=== PATIENT | male | born 1995 | race Caucasian/White ===

== ENCOUNTER 2020-12-30 15:47 | Emergency (ER) | payer MEDICARE, OTHER, SELFPAY ==
[2020-12-30 17:15] VITALS: BP 139/83; PULSE 89; RESP 19; TEMP 37.1; O2SAT 98; BMI 38.9
--- NOTE | 2020-12-30 17:33 | HMH.EDUTC ---
[facility] Disposition Clinical Impression: Abscess of left axilla Cellulitis Qualifiers: Site of cellulitis: trunk Site of cellulitis of trunk: chest wall Qualified Code(s): L03.313 - Cellulitis of chest wall Disposition: Home, Self-Care Condition on Discharge: Good Instructions: Cellulitis, Boil Additional Instructions: Keep the affected area clean and dry. Follow up with your regular doctor. Take the antibiotics as directed and apply the topical antibiotics to the affected area. Apply warm wet compresses to the affected area three or four times per day. GO TO THE ER FOR ANY WORSENING SYMPTOMS Prescriptions: Sulfamethoxazole/Trimethoprim [Bactrim DS tablet] 1 each PO BID 10 Days #20 tab Transmission Status: Pending to [facility] Mupirocin [Bactroban 2% Ointment 22gm tube] 1 applicatio TP TID 7 Days #1 gm Transmission Status: Pending to [facility] cephALEXin [cephALEXin 500mg capsule] 500 mg PO Q6H 10 Days #40 cap Transmission Status: Pending to [facility] Referrals: Joshua Stone MD [Primary Care Provider] - Time of Disposition: 17:38 Medical Decision Making - Medical Records Medical records reviewed: No: I reviewed the patient's medical records. - Bryan Inquiry Pt receiving controlled substance: No Vital Signs: 12/30/20 17:15 Temperature 98.8 F Temperature Source Oral Pulse Rate [Left] 89 Respiratory Rate 19 Blood Pressure [Right Arm] 139/83 Blood Pressure Mean [Right Arm] 101 02 Sat by Pulse Oximetry 98 Orders (Tests/Meds): ORDERS Category Date Time Status Wound Culture and Gram Stain Stat Micro 12/30/20 17:18 Ordered [facility] HPI - General Stated complaint: boil under left arm Time Seen by Provider: 12/30/20 17:20 Mode of Arrival: Ambulatory Source of Information: Patient Limitations: No Limitations Description of Symptoms (Recalled from Triage Doc. by RN): pt states he has a boil under his left arm on his axilla. pt states it just appeared this morning. the area has a think layer of skin covering it and is peeling. small amount of bruising around the area, with redness, swelling and heat. HEENT Symptoms (Recalled from RN notes): No Resp Symptoms (Recalled from RN notes): No Skin Symptoms (Recalled from RN notes): Yes (abcess under L axilla) MS Symptoms (Recalled from RN notes): No Functional Status (Recalled from RN notes): na - History of Present Illness Provider Complaint: He states that for the past 2 days, he has had a sore red area under his left arm that has drainaged some tannish drainage. He denies any fever. He denies any history of getting similar lesions. He is not a diabetic that he knows of. - Related Data Previous Rx's Medication Instructions Recorded Amoxicillin [Amoxicillin 500mg 500 mg PO TID #30 cap 03/08/18 Cap] Mupirocin [Bactroban 2% Ointment 1 applicatio TP TID 7 Days #1 gm 12/30/20 22gm tube] Sulfamethoxazole/Trimethoprim 1 each PO BID 10 Days #20 tab 12/30/20 [Bactrim DS tablet] cephALEXin [cephALEXin 500mg 500 mg PO Q6H 10 Days #40 cap 12/30/20 capsule] Allergies Allergy/AdvReac Type Severity Reaction Status Date / Time NO KNOWN ALLERGIES - NKA Allergy Mild Uncoded 02/11/17 14:04 - Worker's Comp Is this a Worker's Comp case?: No [facility] History - Hepatitis A Screen Drug use history?: No High risk sexual behaviors?: No History of sexually transmitted infection?: No Currently employed?: No Childcare worker?: No Do you have indoor plumbing?: Yes Do you have electricity?: Yes Attestation statement:: This patient has been screened for Hepatitis A risk factors. I have reviewed the patient's past medical history: Yes - Social History Smoking Status: Unknown if ever smoked Tobacco Type: smokeless tobacco Alcohol Intake: never ROS Obtained: Yes All systems reviewed & no additional complaints - Constitutional Constitutional: Denies chills, Denies fever(s)
[2020-12-30 17:46] VITALS: BP 139/83; PULSE 89; RESP 18; TEMP 37.1
== END 2020-12-30 17:52 | disposition home or self-care (01) ==
PROVIDERS: Emergency Provider Nurse Practitioner Family; PCP Internal Medicine Adolescent Medicine
DX: L02.412 Cutaneous abscess of left axilla (principal)
CPT/HCPCS: 10060; G0463; 87070; 87077; 87186; 87205; 99202

== ENCOUNTER 2021-10-04 10:45 | Emergency (ER) | payer MEDICARE, OTHER, SELFPAY ==
[2021-10-04 10:45] VITALS: RESP 18; TEMP 38.8; O2SAT 98; BMI 38.4
--- NOTE | 2021-10-04 11:01 | XR_ITS ---
FINAL REPORT CLINICAL HISTORY: cough FINDINGS: 2 views of the chest were obtained . The heart is normal in size. The mediastinum is within normal limits. There are bilateral pulmonary opacities consistent with bilateral pneumonia. There is no pneumothorax. Osseous structures are unremarkable. IMPRESSION: Bilateral pneumonia. Reviewed, Interpreted and Dictated by Arron Yoo III, MD Transcribed by Natalia Morton Authenticated and . [facility]
--- NOTE | 2021-10-04 11:03 | PC.NURSE ---
pt medicated per MAR. covid swab sent to the lab
[2021-10-04 11:05] LABS: Coronavirus 19, PCR Not Detected (NotDetected); Influenza A, PCR Not Detected (NotDetected); Influenza B, PCR Not Detected (NotDetected)
--- NOTE | 2021-10-04 11:12 | PC.NURSE ---
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
--- NOTE | 2021-10-04 11:38 | HMH.EDGENADL ---
ED Disposition Clinical Impression: Community acquired pneumonia Qualifiers: Laterality: unspecified laterality Qualified Code(s): J18.9 - Pneumonia, unspecified organism Disposition: Home, Self-Care Condition on Discharge: Good Instructions: DI for Pneumonia -- Adult Additional Instructions: Additional instructions for PNEUMONIA: Take antibiotics as prescribed. See your physician as soon as possible for further evaluation. Return immediately if you have an uncontrollable fever greater than 102 degrees, difficulty breathing or shortness of breath, persistent vomiting, or severe chest pain. You are being provided with a list of physicians available for follow-up of your condition. Please call a physician on this list to arrange a follow-up appointment as soon as possible. Prescriptions: Benzonatate [Benzonatate 100mg cap] 100 mg PO TIDP PRN #15 cap PRN Reason: Cough Transmission Status: Pending to [facility] Cefdinir [Omnicef 300mg Capsule] 300 mg PO BID #20 cap Transmission Status: Pending to [email or web address] Azithromycin [Zithromax 250mg tab] 250 mg PO DAILY #4 tab Transmission Status: Pending to [facility] Referrals: Provider,Referral, [Primary Care Provider] - - Critical Care Critical Care Time: No Attestation: On 10/04/21, the high probability of a clinically significant, sudden or life threatening deterioration of the following system(s) required my full and direct attention, intervention and personal management. The time I documented below is in addition to time spent performing reported procedures but includes the following listed in this critical care notation. Medical Decision Making - Bryan Inquiry Pt receiving controlled substance: No Vital Signs: 10/04/21 10:45 10/04/21 11:45 10/04/21 12:00 Temperature 101.9 F H Temperature Source Oral Pulse Rate 101 H 83 Respiratory Rate 18 Blood Pressure 134/79 124/70 Blood Pressure Mean 88 93 02 Sat by Pulse Oximetry 98 98 98 Oxygen Delivery Method Room Air 10/04/21 12:38 Temperature 100.1 F H Temperature Source Oral Pulse Rate Respiratory Rate Blood Pressure Blood Pressure Mean 02 Sat by Pulse Oximetry Oxygen Delivery Method - Lab Data Lab Results 10/04/21 10:59: SARS-CoV-2 (PCR) Not detected, Influenza A Untype (PCR) Not detected, Influenza Type B (PCR) Not detected 10/04/21 11:51: WBC 19.2 H, RBC 4.78, Hgb 14.9, Hct 46.7, MCV 97.7 H, MCH 31.3 H, MCHC 32.0, RDW 13.8, Plt Count 332, MPV 8.3, Neut % (Auto) 79.7, Lymph % (Auto) 10.4, [place] % (Auto) 8.0, Eos % (Auto) 1.5, Baso % (Auto) 0.5, Neut # (Auto) 15.3 H, Lymph # (Auto) 2.0, [place] # (Auto) 1.5 H, Eos # (Auto) 0.3, Baso # (Auto) 0.1, Total Counted 100, Neutrophils % (Manual) 79 H, Lymphocytes % (Manual) 12, Monocytes % (Manual) 8, Eosinophils % (Manual) 1, Platelet Estimate Normal, RBC Morphology Normal 10/04/21 11:51: Sodium 138, Potassium 4.0, Chloride 103, Carbon Dioxide 27, Anion Gap 12.0, BUN 5 L, Creatinine 0.80, Estimated Creat Clear 238, Estimated GFR 119, Est GFR ( Amer) 144, Glucose 121 H, Calcium 9.5, Total Bilirubin 0.8, AST 32, ALT 26, Alkaline Phosphatase 117, Total Protein 8.0, Albumin 4.4, Globulin 3.6 H, Albumin/Globulin Ratio 1.2 10/04/21 11:51: Lactate 1.0 Result diagrams: 10/04/21 11:51 10/04/21 11:51 Orders (Tests/Meds): ED MEDICATIONS Generic Name Dose Route Start Last Admin Trade Name Freq PRN Reason Stop Dose Admin Ceftriaxone Sodium 1 gm/ 50 mls @ 100 mls/hr 10/04/21 12:00 10/04/21 11:52 Sodium Chloride IV 10/18/21 11:59 100 mls/hr Q24H GINA Administration Azithromycin 500 mg/ Sodium 250 mls @ 250 mls/hr 10/04/21 12:00 10/04/21 12:00 Chloride IV 10/18/21 11:59 250 mls/hr Q24H GINA Administration Discontinued Medications Generic Name Dose Route Start Last Admin Trade Name Freq PRN Reason Stop Dose Admin Acetaminophen 1,000 mg 10/04/21 11:01 10/04/21 11:03
[2021-10-04 11:45] VITALS: BP 134/79; PULSE 101; O2SAT 98
[2021-10-04 12:00] VITALS: BP 124/70; PULSE 83; O2SAT 98
--- NOTE | 2021-10-04 12:01 | PC.NURSE ---
ATB INFUSING , NO NEEDS AT THIS TIME
[2021-10-04 12:11] LABS: Basophils # 0.1 K/mm3 (0-0.2); Basophils % 0.5 % (0.1-2.0); Eosinophils # 0.3 K/mm3 (0.0-0.4); Eosinophils % 1.5 % (0.1-12.0); Hematocrit 46.7 % (42.0-52.0); Hemoglobin 14.9 g/dL (14.1-18.0); Lymphocytes % 10.4 % (10-50); Mean Corpuscular Hemoglobin 31.3 pg (27.0-31.2); Mean Corpuscular Volume 97.7 fl (80-94); Mean Platelet Volume 8.3 fl (7.4-10.4); Monocytes # 1.5 K/mm3 (0.1-1.0); Neutrophils # 15.3 K/mm3 (1.8-7.8); Neutrophils % 79.7 % (37.0-80.0); Platelet Count 332 K/mm3 (142-424); Red Blood Count 4.78 M/mm3 (4.60-6.20); Red Cell Distribution Width 13.8 % (11.5-17.5); White Blood Count 19.2 K/mm3 (4.8-10.8)
[2021-10-04 12:13] LABS: MANUAL DIFFERENTIAL MANUAL DIFFERENTIAL (MANUAL DIFF)
[2021-10-04 12:18] LABS: Chloride 103 mmol/L (98-107); Sodium 138 mmol/L (136-145)
[2021-10-04 12:21] LABS: Alanine Aminotransferase 26 U/L (12-78); Albumin Level 4.4 g/dl (3.5-5.0); Albumin/Globulin Ratio 1.2 (1.1-1.8); Alkaline Phosphatase 117 U/L (38-126); Aspartate Amino Transferase 32 U/L (17-59); Bilirubin,Total 0.8 mg/dl (0.2-1.3); Blood Urea Nitrogen 5 mg/dl (9-20); Carbon Dioxide 27 mmol/L (22.0-30.0); Creatinine Clearance Estimated 238 mL/min (50-200); Estimated Glomerular Filt Rate 119 ml/min (>60); GFR (African American) 144 ML/MIN (>60); Globulin 3.6 g/dL (1.3-3.2)
[2021-10-04 12:22] LABS: Calcium 9.5 mg/dl (8.4-10.2); Glucose 121 mg/dl (74-100)
[2021-10-04 12:34] LABS: Eosinophils % 1 % (0-3); Lymphocytes % 12 % (10-50); Monocytes % 8 % (2-9); Neutrophils % 79 % (42-76); Total Cells Counted 100
[2021-10-04 12:35] LABS: Platelet Estimate Normal; RBC Morphology Normal
[2021-10-04 12:38] VITALS: TEMP 37.8
--- NOTE | 2021-10-04 12:38 | PC.NURSE ---
pt and family updated on plan of care
--- NOTE | 2021-10-04 13:39 | PC.NURSE ---
ER at going over results and update on POC
[2021-10-04 14:03] VITALS: BP 112/90; PULSE 94; RESP 18; TEMP 37.8; O2SAT 94
== END 2021-10-04 14:04 | disposition home or self-care (01) ==
PROVIDERS: Emergency Provider Emergency Medicine
DX: J18.9 Pneumonia, unspecified organism (principal)
CPT/HCPCS: 71046; 80053; 83605; 85007; 85025; 87040; 96365; 96367; 99284; C9803; J0456; J0696; U0003; U0005

== ENCOUNTER 2021-10-17 20:48 | Emergency (ER) | payer MEDICARE, OTHER, SELFPAY ==
[2021-10-17 21:20] VITALS: BP 0/0; PULSE 0; RESP 0; TEMP -17.7; TEMP 0
== END 2021-10-17 21:20 | disposition left against medical advice (07) ==
LOC: ER 21:02
PROVIDERS: Emergency Provider Emergency Medicine
DX: Z53.21 Procedure and treatment not carried out due to patient leaving prior to being seen by health care provider (principal)

== ENCOUNTER 2022-10-03 10:12 | Emergency (ER) | payer MEDICARE, OTHER, SELFPAY ==
[2022-10-03 10:18] VITALS: BP 127/83; PULSE 86; RESP 16; TEMP 36.7; O2SAT 97; BMI 36.9
--- NOTE | 2022-10-03 10:43 | PC.NURSE ---
Left wrist placed. Pt tolerated well.
--- NOTE | 2022-10-03 10:46 | HMH.EDGENADL ---
Discharge Plan Disposition Patient Disposition: Home, Self-Care Prescriptions Prescriptions: No Action amoxicillin 500 MG capsule 500 mg PO TID Qty: 30 0RF sulfamethoxazole-trimethoprim 1 EACH tablet 1 each PO BID 10 Days Qty: 20 0RF cephalexin 500 MG capsule 500 mg PO Q6H 10 Days Qty: 40 0RF mupirocin 22 GM ointment 1 applicatio TP TID 7 Days Qty: 1 0RF azithromycin 250 MG tablet 250 mg PO DAILY Qty: 4 0RF benzonatate 100 MG capsule 100 mg PO TIDP PRN (Reason: Cough) Qty: 15 0RF cefdinir 300 MG capsule 300 mg PO BID Qty: 20 0RF Referrals Follow up/Referrals: Joshua Stone MD [Primary Care Provider] - See instructions Activity Restrictions/Add. Instructions Additional Instructions/Restrictions: Please wear your splint at all times and follow-up with a hand surgeon that we give your information about. It is possible that you may see resolution of your symptoms spontaneously over several months. There is no clinical evidence that you have a more proximal abnormality going on and this is a peripheral radial nerve neuropathy which most likely occurred the night you were sleeping heavily and compressed it at the location of the spiral groove in your upper arm. I do not suspect anything more central at this point. Make sure you follow-up with a hand surgeon to ensure resolution or to discuss treatment options or physical therapy options in the event that you do not have improvement in your symptoms. 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 by RN): Presents via POV d/t intermittent numbness/tingling to left wrist. Pt reports difficulty with gripping objects. Denies repetitive movements/trauma. 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 History of Present Illness HPI narrative: Patient is a 27-year-old male here with inability to extend his hand and his wrist. This began 4 days ago when he woke up from sleep this way. He states he is a very heavy sleeper but denies any drug use or alcohol use particular the night before this began. He states he has full strength in his shoulder and his elbow region can poke in without any difficulty but cannot extend his fingers or his hand at the wrist. Denies any other neurologic symptoms or any trauma or injury. Unsure as to whether or not he was sleeping on his arm the night before this happened.. Related Data Previous Rx's Medication Instructions Recorded amoxicillin 500 mg capsule 500 mg PO TID #30 caps 03/08/18 cephalexin 500 mg capsule 500 mg PO Q6H 10 days #40 caps 12/30/20 mupirocin 2 % topical ointment 1 applicatio TP TID 7 days ##1 12/30/20 sulfamethoxazole 800 1 each PO BID 10 days #20 tabs 12/30/20 mg-trimethoprim 160 mg tablet azithromycin 250 mg tablet 250 mg PO DAILY #4 tabs 10/04/21 benzonatate 100 mg capsule 100 mg PO TIDP PRN Cough #15 caps 10/04/21 cefdinir 300 mg capsule 300 mg PO BID #20 caps 10/04/21 Allergies Allergy/AdvReac Type Severity Reaction Status Date / Time NO KNOWN ALLERGIES - NKA Allergy Mild Uncoded 02/11/17 14:[address] [facility] Disclaimer: The information contained in this section may have been updated after the patient was seen, as this information can be updated by other users. Social History Smoking Status: Never smoker alcohol intake: never current occupational status: other Travel in the last 8 weeks: None ROS Obtained: Yes All systems reviewed & no additional complaints except as documented Physical Exam General General appearance: alert Respiratory Respiratory exam: Present normal lung sounds bilaterally Cardiovascula
[2022-10-03 10:47] VITALS: BP 127/83; PULSE 86; RESP 16; TEMP 36.7; O2SAT 97
--- NOTE | 2022-10-05 21:36 | PC.NURSE ---
patient chart accessed for ortho demographics
== END 2022-10-03 10:49 | disposition home or self-care (01) ==
PROVIDERS: Emergency Provider Student in an Organized Health Care Education/Training Program; PCP Internal Medicine Adolescent Medicine
DX: G56.32 Lesion of radial nerve, left upper limb (principal); M25.532 Pain in left wrist
CPT/HCPCS: 99282

== ENCOUNTER 2024-07-21 16:10 | Emergency (ER) | payer MEDICARE, OTHER, SELFPAY ==
--- NOTE | 2024-07-21 | XR_ITS ---
PROCEDURE INFORMATION: Exam: XR Chest Exam date and time: 07/21/2024 5:01 PM Age: 29 years old Clinical indication: Pain; Chest pressure TECHNIQUE: Imaging protocol: Radiologic exam of the chest. Views: 2 views. COMPARISON: No relevant prior studies available. FINDINGS: Lungs: Very faint airspace opacities are seen in the left upper lobe. Pleural spaces: Unremarkable. No pleural effusion. No pneumothorax. Heart/Mediastinum: Unremarkable. No cardiomegaly. Bones/joints: Unremarkable. IMPRESSION: Faint left upper lobe airspace disease may represent pneumonia.
[2024-07-21 16:50] VITALS: BP 127/71; PULSE 75; RESP 18; TEMP 37; O2SAT 97; BMI 42.8
[2024-07-21] MEDS: IPRATROPIUM/ALBUTEROL 3 ML NEB IH (17:20)
--- NOTE | 2024-07-21 18:09 | ED_ITS ---
<Statement entered by Amarilis Smyth DO - 07/21/24 22:54> I was consulted by the LISA, and we discussed the complexity of the problems being addressed. I approved the treatment and management plan for this patient's care in the emergency department, thus performing a substantive portion of the medical decision making. Amarilis Smyth DO Discharge Plan Disposition Patient Disposition: Home, Self-Care Condition: Good Prescriptions Prescriptions: New albuterol sulfate 90 mcg/actuation HFA aerosol inhaler 1 inh inhalation Q4H PRN (Reason: shortness of breath or wheezing) Qty: 8.5 0RF doxycycline hyclate 100 mg capsule 100 mg PO BID 10 Days Qty: 20 0RF prednisone 50 mg tablet 50 mg PO DAILY 5 Days Qty: 5 0RF tqlmflilddknznk-kxfephzxj-GZ [Bromfed DM] 2-30-10 mg/5 mL syrup 5 ml PO Q4H PRN (Reason: sinus symptoms) Qty: 118 0RF No Action amoxicillin 500 MG capsule 500 mg PO TID Qty: 30 0RF sulfamethoxazole-trimethoprim 1 EACH tablet 1 each PO BID 10 Days Qty: 20 0RF cephalexin 500 MG capsule 500 mg PO Q6H 10 Days Qty: 40 0RF mupirocin 22 GM ointment 1 applicatio TP TID 7 Days Qty: 1 0RF azithromycin 250 MG tablet 250 mg PO DAILY Qty: 4 0RF benzonatate 100 MG capsule 100 mg PO TIDP PRN (Reason: Cough) Qty: 15 0RF cefdinir 300 MG capsule 300 mg PO BID Qty: 20 0RF Referrals Follow up/Referrals: Joshua Stone MD [Primary Care Provider, Internal Medicine] - See instructions Activity Restrictions/Add. Instructions Additional Instructions/Restrictions: I have sent in medicine to your pharmacy. Please take your antibiotic till it is gone. If you have any persistant new or worsening signs or symptoms follow up with your PCP or return to the ER as needed. Clinical Impressions Clinical Impression: Acute lower respiratory tract infection Print Language Print Language: German Discharge ED Provider: Amarilis Smyth General Adult HPI General Chief complaint: Upper Respiratory Infection Stated complaint: SOA; Cough Time Seen by Provider: 07/21/24 16:10 History of Present Illness HPI narrative: Patient presents for evaluation of cough and chest pain with coughing. Patient reports that he has had cough congestion and malaise for approximately 3 to 4 days. He denies any subjective fever chills hemoptysis hematochezia melena nausea vomiting diarrhea. He has not tried any dtrg-tyf-zllcwup medication. He does not smoke and has no pulmonary history. Related Data Previous Rx's ?Medication ?Instructions ?Recorded amoxicillin 500 mg capsule 500 mg PO TID #30 caps 02/24 05/12 cephalexin 500 mg capsule 500 mg PO Q6H 10 days #40 ca ps 12/30/20 mupirocin 2 % topical ointment 1 applicatio TP TID 7 d ays ##1 12/30/20 sulfamethoxazole 800 1 each PO BID 10 days #20 ta bs 12/30/20 mg-trimethoprim 160 mg tablet azithromycin 250 mg tablet 250 mg PO DAILY #4 tabs 01/15 benzonatate 100 mg capsule 100 mg PO TIDP PRN Cough #1 5 caps 10/04/21 cefdinir 300 mg capsule 300 mg PO BID #20 caps 10/04 albuterol sulfate 90 mcg/actuation 1 inh inhalation Q4 H PRN shortness 07/21/24 aerosol inhaler of breath or wheezing #8.5 g sravanthi raithzhvinsmbvw-czuswabqpbahdda-KE 5 ml PO Q4H PRN sin us symptoms 07/21/24 2 mg-30 mg-10 mg/5 mL oral syrup #118 mL (Bromfed DM) doxycycline hyclate 100 mg capsule 100 mg PO BID 10 da ys #20 caps 07/21/24 prednisone 50 mg tablet 50 mg PO DAILY 5 days #5 tab s 07/21/24 Allergies Allergy/AdvReac Type Severity Reaction Status Date / Time NO KNOWN ALLERGIES - NKA Allergy Mild Uncoded 02/11/17 14:04 [facility] Disclaimer: The information contained in this section may have been updated after the patient was seen, as this information can be updated by other users. Social History (Updated 10/03/22 @ 10:50 by Tony Villegas MD) Smoking Status: Never smoker alcohol intake: never current occupational status: other Travel in the last 8 weeks?: None Have you lived/traveled outside [place] in past 30 days?: No Contact w/someone who lives/traveled outside US past 30 days?: No Exposure to someone with infectious disease in past 14 days?: No Do you have a fever (greater than 100.4 F or 38 C)?: No Have you tested positive for COVID-19?: No Exposed to someone with COVID-19 in past 14 days?: No Do you have a sore throat?: No Do you have a cough?: No Do you have any weakness?: No Do you have any diarrhea?: No Are you experiencing any unusual bleeding?: No Do you have any muscle aches/pain?: No Do you have any abdominal pain?: No Are you experiencing loss of taste or smell?: No Other Medical History Have you received the Flu Vaccine for this season: No Have you received the Pneumonia Vaccine: No ROS Obtained: Yes Systems reviewed as appropriate & no additional complaints except as documented Physical Exam General General appearance: alert and in no apparent distress Respiratory Respiratory exam: Present normal lung sounds bilaterally Cardiovascular Cardiovascular exam: Present regular rate Neurological Exam Neurological exam: Present alert and oriented X3 Medical Decision Making Medical Records Medical records reviewed: Yes I reviewed the patient's medical records. Screening: Per USPSTF and CDC recommendations, given the prevalence of disease in our region, it is our hospital?s policy to screen for HIV and viral Hepatitis for all patients aged 18 and over and those with ongoing risk factors. Bryan Inquiry Pt receiving controlled substance: No Vital Signs: 07/21/24 16:50 07/21/24 18:20 Temperature 98.6 F 98.6 F Temperature Source Oral Oral Pulse Rate 76 Pulse Rate [Radial] 75 Respiratory Rate 18 18 Blood Pressure 116/67 Blood Pressure [Left Arm] 127/71 Blood Pressure Mean [Left Arm] 89 Blood Pressure Source [Left Arm] Automatic Cuff Blood Pressure Position Sitting Blood Pressure Position [Left Arm] Sitting 02 Sat by Pulse Oximetry 97 Oxygen Delivery Method Room Air Room Air Lab Data Lab results reviewed: Yes I reviewed the patient's lab results. Orders (Tests/Meds): ED MEDICATIONS Discontinued Medications Generic Name Dose Route Start Last Admin Trade Name Freq PRN Reason Stop Dose Admin Albuterol/Ipratropium 3 ml 07/21/24 16:00 07/21/24 17:20 Ipratropium/Albuterol 3 Ml Neb IH 07/21/24 16:01 3 ml ONCE ONE Administration Doxycycline Hyclate 100 mg 07/21/24 18:21 Doxycycline Hycl 100 Mg Tablet PO 07/21/24 18:22 ONCE ONE Prednisone 60 mg 07/21/24 16:00 07/21/24 18:16 Prednisone 20mg Tab PO 07/21/24 16:01 60 mg ONCE ONE Administration ORDERS Category Date Time Status XR chest 2V Routine Exams 07/21/24 Completed Medical Decision Narrative: In summary patient is a 29-year-old male who presents to the emergency departm ent for evaluation of nonproductive cough congestion and right sided chest pain with coughing. Patient is hemodynamically stable with blood pressure 127/71 pulse 75 normal sinus rhythm on bedside monitor breathing 18 times a minute satting at 97% room air upon arrival, afebrile at 98.6. Physical exam is remarkable for no reproducible chest pain on palpation, breath sounds reveal that the left lung faust are clear to auscultation to the bases however right middle and lower lung faust have an expiratory wheezes. There is no increased work of breathing or accessory muscle use. Abdomen soft nontender no rebound or guarding or rigidity.. Differential diagnosis includes bacterial viral lower respiratory tract infection versus COPD versus bronchitis etc. Initial workup will be conducted with plain film chest x-ray and COVID and flu swabs. Initial interventions include DuoNeb and prednisone. Initial workup reviewed by me and my informal interpretation of his plain film chest x-ray shows right lower lobe patchy opacities that could be consistent with pneumonia. Upon repeat evaluation patient had complete resolution of his symptoms and felt better after DuoNeb and prednisone, bilateral breath sounds are now equal without adventitious sounds and patient remains hemodynamically stable afebrile satting at 97% on room air. Given this patient is appropriate for discharge with presc ription for Bromfed albuterol inhaler prednisone and doxycycline and close follow-up PCP for persistent new or worsening signs or symptoms. Patient verbalized understanding and agreement. Critical Care Critical Care Time Critical Care Time: No
[2024-07-21] MEDS: predniSONE 20MG TAB 60 MG PO (18:16)
[2024-07-21 18:20] VITALS: BP 116/67; PULSE 76; RESP 18; TEMP 37; O2SAT 95
== END 2024-07-21 18:20 | disposition home or self-care (01) ==
PROVIDERS: Emergency Provider Emergency Medicine; PCP Internal Medicine Adolescent Medicine
DX: R06.02 Shortness of breath (principal); J22 Unspecified acute lower respiratory infection
CPT/HCPCS: 71046; 99283